=== PATIENT | male | born 1960 | race Caucasian/White ===

== ENCOUNTER 2018-03-15 18:55 | Emergency (ER) | payer BC, OTHER ==
[2018-03-15] MEDS ORDERED: COLCHICINE 0.6 MG CAP/TAB PO ONE (19:12)
[2018-03-15] MEDS ORDERED: INDOMETHACIN 25 MG CAP PO ONE (19:12)
--- NOTE | 2018-03-15 19:15 | EDPHY ---
H & P Stated Complaint: right great toe pain for 3 days Time Seen by Provider: 03/15/18 19:09 HPI/ROS: CHIEF COMPLAINT: Right great toe pain HISTORY OF PRESENT ILLNESS: Patient is a 57-year-old man who comes to the emergency department complaining of pain at the MTP joint of his right great toe. It began about 2 days ago. He has not had a fever. It is very slightly swollen and very slightly erythematous. He does not have diabetes. He has never had a foot infection before. No history of gout. No history of trauma. No recent abrasions or wounds or infections. Never had symptoms like this before. He describes his pain is moderate. REVIEW OF SYSTEMS: Constitutional: denies: chills, fever, recent illness, recent injury EENTM: denies: blurred vision, double vision, nose congestion Respiratory: denies: cough, shortness of breath Cardiac: denies: chest pain, irregular heart rate, lightheadedness, palpitations Gastrointestinal/Abdominal: denies: abdominal pain, diarrhea, nausea, vomiting, blood streaked stools Genitourinary: denies: dysuria, frequency, hematuria, pain Musculoskeletal: See HPI Skin: denies: lesions, rash, jaundice, bruising Neurological: denies: headache, numbness, paresthesia, tingling, dizziness, weakness Hematologic/Lymphatic: denies: blood clots, easy bleeding, easy bruising Immunologic/allergic: denies: HIV/AIDS, transplant EXAM: GENERAL: Well-appearing, well-nourished and in no acute distress. HEAD: Atraumatic, normocephalic. EYES: Pupils equal round and reactive to light, extraocular movements intact, sclera anicteric, conjunctiva are normal. ENT: TMs normal, nares patent, oropharynx clear without exudates. Moist mucous membranes. NECK: Normal range of motion, supple without lymphadenopathy or JVD. LUNGS: Breath sounds clear to auscultation bilaterally and equal. No wheezes rales or rhonchi. HEART: Regular rate and rhythm without murmurs, rubs or gallops. ABDOMEN: Soft, nontender, normoactive bowel sounds. No guarding, no rebound. No masses appreciated. BACK: No CVA tenderness, no spinal tenderness, step-offs or deformities EXTREMITIES: See above, no fluctuance, no obvious tophi, no warmth. Normal range of motion, no pitting or edema. No clubbing or cyanosis. NEUROLOGICAL: Cranial nerves II through XII grossly intact. Normal speech, normal gait. 5/5 strength, normal movement in all extremities, normal sensation PSYCH: Normal mood, normal affect. SKIN: Warm, dry, normal turgor, no visible rashes or lesions. Source: Patient Exam Limitations: No limitations - Personal History Current Tetanus Diphtheria and Acellular Pertussis (TDAP): Unsure - Medical/Surgical History Hx Asthma: No Hx Chronic Respiratory Disease: No Hx Diabetes: No Hx Cardiac Disease: No Hx Renal Disease: No Hx Cirrhosis: No Hx Alcoholism: No Hx HIV/AIDS: No Hx Splenectomy or Spleen Trauma: No - Family History Significant Family History: No pertinent family hx - Social History Smoking Status: Never smoked Alcohol Use: Sober Drug Use: None Constitutional: Initial Vital Signs Temperature (C) 36.7 C 03/15/18 19:08 Heart Rate 81 03/15/18 19:08 Respiratory Rate 14 03/15/18 19:08 Blood Pressure 159/91 H 03/15/18 19:08 O2 Sat (%) 96 03/15/18 19:08 O2 Delivery Mode Room Air Allergies/Adverse Reactions: No Known Allergies Allergy (Unverified 03/15/18 19:08) Home Medications: Medication Instructions Recorded Colchicine 0.6 mg PO BID #30 capsule 03/15/18 Indomethacin [Indocin] 50 mg RC TID #30 supp.rect 03/15/18 Medical Decision Making - Diagnostics Imaging Results: Imaging Impressions Toe X-Ray 03/15/18 19:13 Impression: 1. Mild soft tissue thickening along the medial aspect of the right first MTP joint without adjacent osseous abnormality. Imaging: Discussed imaging studies w/ banquet server on call Radiologist ED Course/Re-evaluation: The patient's symptoms are consistent with gout. I have very low suspicion for septic joint. I will obtain an x-ray and initiate on gout medications with follow-up in the next few days. I do not think that there is a large enough effusion for arthrocentesis. 8:00 p.m. we discussed the lab results which are reassuring from infection without elevated white count or sed rate. His uric acid level is also normal. We agreed not to perform arthrocentesis at this time but the patient will try the medications and follow up with his primary. We discussed indications for returning. Differential Diagnosis: Partial list of the Differential diagnosis considered include but were not limited to; gout, pseudogout, joint infection and although unlikely based on the history and physical exam, I also considered cellulitis, ischemia, DVT, trauma. I discussed these differential diagnoses and the plan with the patient as well as the usual and expected course. The patient understands that the diagnosis is provisional and that in medicine we are not always correct and that further workup is often warranted. Usual and customary warnings were given. All of the patient's questions were answered. The patient was instructed to return to the emergency department should the symptoms at all worsen or return, otherwise to followup with the physician as we discussed. - Data Points Laboratory Results: Laboratory Results 03/15/18 19:38 03/15/18 03/15/18 19:38 19:38 WBC 9.28 10^3/uL 10^3/uL (3.80-9.50) RBC 4.69 10^6/uL 10^6/uL (4.40-6.38) Hgb 14.3 g/dL g/dL (13.7-17.5) Hct 42.3 % % (40.0-51.0) MCV 90.2 fL fL (81.5-99.8) MCH 30.5 pg pg (27.9-34.1) MCHC 33.8 g/dL g/dL (32.4-36.7) RDW 12.8 % % (11.5-15.2) Plt Count 222 10^3/uL 10^3/uL (150-400) MPV 9.6 fL fL (8.7-11.7) Neut % (Auto) 61.7 % % (39.3-74.2) Lymph % (Auto) 27.5 % % (15.0-45.0) Russell % (Auto) 8.3 % % (4.5-13.0) Eos % (Auto) 1.6 % % (0.6-7.6) Baso % (Auto) 0.5 % % (0.3-1.7) Nucleat RBC Rel Count 0.0 % % (0.0-0.2) Absolute Neuts (auto) 5.72 10^3/uL 10^3/uL (1.70-6.50) Absolute Lymphs (auto) 2.55 10^3/uL 10^3/uL (1.00-3.00) Absolute Monos (auto) 0.77 10^3/uL 10^3/uL (0.30-0.80) Absolute Eos (auto) 0.15 10^3/uL 10^3/uL (0.03-0.40) Absolute Basos (auto) 0.05 10^3/uL 10^3/uL (0.02-0.10) Absolute Nucleated RBC 0.00 10^3/uL 10^3/uL (0-0.01) Immature Gran % 0.4 % % (0.0-1.1) Immature Gran # 0.04 10^3/uL 10^3/uL (0.00-0.10) ESR 10 MM/HR MM/HR (0-20) Uric Acid 6.3 mg/dL mg/dL (3.5-8.5) Medications Given: Discontinued Medications Colchicine (Colchicine) 1.2 mg PO EDNOW ONE Stop: 03/15/18 19:13 Last Admin: 03/15/18 19:17 Dose: 1.2 mg Indomethacin (Indocin) 50 mg PO EDNOW ONE Stop: 03/15/18 19:13 Last Admin: 03/15/18 19:17 Dose: 50 mg Departure - Departure Disposition: Home, Routine, Self-Care Clinical Impression: Gouty arthritis of right great toe Condition: Fair Instructions: Low Purine Diet (ED), Gout (ED) Referrals: Maurisio Sue MD [Primary Care Provider] - As per Instructions Prescriptions: Colchicine 0.6 mg PO BID #30 capsule Indomethacin [Indocin] 50 mg RC TID #30 supp.rect
[2018-03-15 19:46] LABS: PLATELET COUNT 222 10^3/uL (150-400)
[2018-03-15 20:20] VITALS: BP 148/82
== END 2018-03-15 20:15 | disposition home or self-care (01) ==
LOC: CED 18:55
DX: M10.9 Gout, unspecified (principal)
CPT/HCPCS: 73660-PO; 84550-PO; 85025-PO; 85652-PO